=== PATIENT | male | born 1990 | race Caucasian/White ===

== ENCOUNTER 2016-04-03 | Emergency (ER) | payer OTHER | END 2016-04-03 18:37 | disposition home or self-care (01) ==

== ENCOUNTER 2016-09-01 11:51 | Emergency (ER) | payer OTHER ==
--- NOTE | 2016-09-01 12:17 | XRAY Preliminary Report ---
Exam: XR Shoulder 3 View RT IMPRESSION: Negative three-view right shoulder radiography. [facility] SITE ID: [id number]
--- NOTE | 2016-09-01 12:20 | XRAY Report ---
EXAM: RIGHT SHOULDER RADIOGRAPHY EXAM DATE: 09/01/2016 12:12 PM. CLINICAL HISTORY: Grinding, limited rom, pain. COMPARISON: None. TECHNIQUE: 3 views. FINDINGS: Bones: Normal. No fracture or bone lesion. Joints: The glenohumeral and acromioclavicular joints are anatomically aligned. Soft tissues: The included hemithorax is unremarkable. No soft tissue calcification. IMPRESSION: Negative three-view right shoulder radiography. [facility] Referring Provider Line: [phone] SITE ID: [id number]
[2016-09-01] MEDS ORDERED: IBUPROFEN 800 MG TABLET PO STA (12:51)
[2016-09-01] MEDS ORDERED: oxyCOD/ACETAMIN 5 MG/325 MG TABLET PO STA (12:51)
[2016-09-01] MEDS ORDERED: oxyCOD/ACETAMIN 5 MG/325 MG TABLET PO ONE (12:55)
[2016-09-01] MEDS ORDERED: IBUPROFEN 800 MG TABLET PO ONE (12:55)
--- NOTE | 2016-09-01 13:02 | ED Physician Documentation ---
History of Present Illness - Stated complaint Stated Complaint: RT SHOULDER PX - Chief complaint Chief Complaint: Ext Problem - History obtained from History obtained from: Patient - Additonal information Additional information: Patient is a 26-year-old man who is otherwise healthy. He presents with a complaint of right shoulder pain without injury. Pain is been present for a couple days. Pain is worse with movement and better with rest. He sometimes hears a clicking or grinding sensation in the right shoulder joint. There is no history of recent or distant injury. He does have a history of ligamentous laxity has had previous surgery on the right knee. He has been performing fair amount of repetitive activity recently. There is no fever or chills. He denies any neck pain. There is no weakness in the upper extremity. Review of systems: For pertinent positive and negatives in the review of systems please see history of present illness. Otherwise all other systems have been reviewed and are negative. Dragon disclaimer: Parts of this medical record were created using voice recognition technology. Because of the inherent limitations of this system occasional same sounding word substitutions do occur and persist despite proofreading. Please read the document for context. Review of Systems Ten Systems: 10 systems reviewed and negative Constitutional: denies: Fever, Chills, Myalgias Cardiac: denies: Chest pain / pressure, Palpitations, Calf pain Respiratory: denies: Dyspnea, Cough, Hemoptysis, Wheezing GI: denies: Abdominal Pain, Abdominal Swelling, Nausea, Vomiting Musculoskeletal: denies: Neck pain, Back pain, Extremity pain, Extremity swelling PD PAST MEDICAL HISTORY - Past Medical History Cardiovascular: None Respiratory: None Endocrine/Autoimmune: None GI: None : None HEENT: None Psych: None Musculoskeletal: Other Derm: None - Past Surgical History Past Surgical History: No HEENT: Tonsil/Adenoidectomy - Present Medications Home Medications: Ambulatory Orders Medication Instructions Recorded Confirmed Cholecalciferol (Vitamin D3) 1 tab .ON Mon09/01/16 09/01/16 [Vitamin D3] Ibuprofen 600 mg PO TID PRN #14 tablet 09/01/16 Naproxen 0 mg PRN 09/01/16 Tramadol HCl 50 mg PO Q8HR PRN #14 tablet 09/01/16 buPROPion [Wellbutrin Sr] 300 mg DAILY 09/01/16 09/01/16 - Allergies Allergies/Adverse Reactions: Allergies Allergy/AdvReac Type Severity Reaction Status Date / Time No Known Drug Allergies Allergy Verified 01/18/16 10:12 - Social History Does the pt smoke?: No Smoking Status: Never smoker Does the pt drink ETOH?: No Does the pt have substance abuse?: No - Immunizations Immunizations are current?: Yes - POLST Patient has POLST: No PD ED PE NORMAL - General General: Alert and oriented X 3, No acute distress, Well developed/nourished - HEENT HEENT: Atraumatic, PERRL, EOMI - Neck Neck: Supple, no meningeal sign - Cardiac Cardiac: RRR, No murmur, No gallop, No rub - Respiratory Respiratory: No respiratory distress, Clear bilaterally - Abdomen Abdomen: Normal bowel sounds - Derm Derm: Normal color, Warm and dry Results - Vitals Vitals: Vital Signs - 24 hr 09/01/16 11:55 Temperature 36.3 C L Heart Rate 80 Respiratory 18 Rate Blood Pressure 125/83 H O2 Saturation 97 Oxygen O2 Source Room air PD MEDICAL DECISION MAKING - ED course Complexity details: reviewed results, re-evaluated patient, considered differential, d/w patient ED course: Healthy right-hand dominant white male presents with 2 days history of atraumatic right shoulder pain. He feels a click and a pop. On examination I did fill one pop which elicited pain on range of motion testing. Age of motion testing is normal. The joint appears fine without swelling redness or warmth. Radiographically it is completely normal. He does have a history of ligamentous laxity. At this point in time recommending rest, avoidance of repetitive use, oral medications and follow-up. Disposition: To home Clinical impression: 1. Right shoulder pain Departure - Departure Disposition: 01 Home, Self Care Clinical Impression: Sprain of shoulder and upper arm Qualifiers: Encounter type: initial encounter Laterality: right Qualified Code(s): S43.401A - Unspecified sprain of right shoulder joint, initial encounter Condition: Good Instructions: Shoulder Probs, Exercises Shoulder Flexibility, ED Sprain Shoulder Prescriptions: Tramadol HCl 50 mg PO Q8HR PRN #14 tablet PRN Reason: Pain Ibuprofen 600 mg PO TID PRN #14 tablet PRN Reason: Pain
[2016-09-01 13:47] VITALS: BP 123/88
== END 2016-09-01 13:44 | disposition home or self-care (01) ==
LOC: ED 11:51
DX: S43.401A Unspecified sprain of right shoulder joint, initial encounter (principal); X58.XXXA Exposure to other specified factors, initial encounter
CPT/HCPCS: 73030; 99283; A9270

== ENCOUNTER 2016-10-25 11:54 | Emergency (ER) | payer OTHER ==
--- NOTE | 2016-10-25 12:31 | ED Physician Documentation ---
History of Present Illness - Stated complaint Stated Complaint: CHEST PX, SOA - Chief complaint Chief Complaint: General - Additonal information Additional information: Patient is a young male with a history of depression currently being evaluated for medication use. He is walking to the clinic appointment today when he developed chest pain and shortness of breath. The 2 occurred at the same time. Chest pain was a dull ache and he got very short of breath at the same time. He denies feeling anxious at that time he denies any fever or chills. He has not had any cough or ear nose and throat symptoms there is no abdominal pain nausea, vomiting constipation or diarrhea. He used to smoke but does not do so anymore. There is no history of venous thromboembolism and he has no leg pain and swelling of that he does have chronic right knee pain. Review of systems: For pertinent positive and negatives in the review of systems please see the history of present illness, otherwise all other systems have been reviewed and are negative. Dragon disclaimer: Parts of this medical record were created using voice recognition technology. Because of the inherent limitations of this system, occasional same sounding word substitutions do occur and persist despite proofreading. Please read the document for context. Review of Systems Constitutional: denies: Fever, Chills Nose: denies: Rhinorrhea / runny nose PD PAST MEDICAL HISTORY - Past Medical History Past Medical History: Yes Cardiovascular: None Respiratory: None Endocrine/Autoimmune: None GI: None : None HEENT: None Psych: Depression Musculoskeletal: Other Derm: None - Past Surgical History Past Surgical History: Yes HEENT: Tonsil/Adenoidectomy - Present Medications Home Medications: Ambulatory Orders Medication Instructions Recorded Confirmed buPROPion [Wellbutrin Sr] 300 mg DAILY 09/01/16 10/25/16 - Allergies Allergies/Adverse Reactions: Allergies Allergy/AdvReac Type Severity Reaction Status Date / Time No Known Drug Allergies Allergy Verified 10/25/16 11:59 - Social History Does the pt smoke?: No Smoking Status: Never smoker Does the pt drink ETOH?: No Does the pt have substance abuse?: No - Immunizations Immunizations are current?: Yes - POLST Patient has POLST: No PD ED PE NORMAL - Vitals Vital signs reviewed: Yes - General General: Alert and oriented X 3, No acute distress, Well developed/nourished - HEENT HEENT: Atraumatic, PERRL, EOMI, Ears normal, Pharynx benign - Neck Neck: Supple, no meningeal sign, No bony TTP, No JVD, No bruit - Cardiac Cardiac: RRR, No murmur, No gallop, No rub - Respiratory Respiratory: No respiratory distress, Clear bilaterally - Abdomen Abdomen: Normal bowel sounds, Non tender - Derm Derm: Normal color, Warm and dry, No rash - Extremities Extremities: No deformity, No tenderness to palpate, Normal ROM s pain, No edema - Neuro Neuro: Alert and oriented X 3 Results - Vitals Vitals: Vital Signs - 24 hr 10/25/16 10/25/16 11:56 13:38 Temperature 36.4 C L Heart Rate 88 80 Respiratory 18 18 Rate Blood Pressure 129/82 H 120/80 O2 Saturation 98 Oxygen O2 Source Room air PD MEDICAL DECISION MAKING - ED course Complexity details: reviewed old records, reviewed results, re-evaluated patient , d/w patient, d/w family ED course: Patient is a healthy young male without any past medical history other than possibly mild depression and anxiety who presents with chest pain. He has a normal physical examination. EKG shows normal sinus rhythm with a normal NV, QRS, QT interval without ST segment elevation depression or T-wave inversion of her also perfectly normal EKG. Chest x-ray shows no acute intrathoracic disease. He is very low risk for ACS. I see no evidence of venous thromboembolism. There is no evidence referred chest pain having this patient is safe to be discharged home with follow-up. Disposition to home Clinical impression: 1. Precordial pain-low risk cardiac and VTE Departure - Departure Disposition: 01 Home, Self Care Clinical Impression: Chest pain Condition: Good Instructions: ED Chest Pain Atypical Unkn Cause Follow-Up: CHAD PUENTES [Primary Care Provider] - Discharge Date/Time: 10/25/16 13:39
--- NOTE | 2016-10-25 13:13 | XRAY Preliminary Report ---
Exam: XR Chest 2 View PA/LAT IMPRESSION: Normal 2-view chest radiography. [facility] SITE ID: [id number]
--- NOTE | 2016-10-25 13:16 | XRAY Report ---
EXAM: CHEST RADIOGRAPHY EXAM DATE: 10/25/2016 12:48 PM. CLINICAL HISTORY: Chest pain. COMPARISON: None. TECHNIQUE: 2 views. FINDINGS: Lungs/Pleura: No focal opacities evident. No pleural effusion. No pneumothorax. Normal volumes. Mediastinum: Heart and mediastinal contours are unremarkable. Other: None. IMPRESSION: Normal 2-view chest radiography. [facility] Referring Provider Line: [phone] SITE ID: [id number]
[2016-10-25 13:39] VITALS: BP 120/80
== END 2016-10-25 13:39 | disposition home or self-care (01) ==
LOC: ED 11:54
DX: R07.9 Chest pain, unspecified (principal)
CPT/HCPCS: 71020; 93005; 99283

== ENCOUNTER 2016-12-30 11:55 | Emergency (ER) | payer OTHER ==
--- NOTE | 2016-12-30 12:38 | ED Physician Documentation ---
PD HPI GI BLEED - Stated complaint Stated Complaint: RECTAL BLEEDING - Chief complaint Chief Complaint: General - History obtained from History obtained from: Patient - History of Present Illness Timing - onset: How many weeks ago (1) Timing - duration: Weeks (1has had red blood at rectum with wiping after BMs for the past week. Some pain with BMs. Also here with worse depression, anxiety , and suicidal ideation for the past few weeks. Last seen by psychiatrist 2-3 weeks ago with 2 new meds added and patient did not note improvement, actually much worse the past few days. Suicidal ideation without attempt.) Timing - details: Abrupt onset, Intermittant Associated symptoms: BRBPR Contributing factors: No: Sick contact, Bad food, Travel Similar symptoms before: Has not had sx before Recently seen: Clinic (psychiatry 2-3 weeks ago and counselor weekly.) Review of Systems Constitutional: denies: Fever, Chills Nose: denies: Rhinorrhea / runny nose, Congestion Throat: denies: Sore throat Respiratory: denies: Cough GI: reports: Bloody / black stool (red blood with wiping and in toilet bowl after BMs for the past week. Had been somewhat constiapted. Pain rectally with BMs. No prior similar.). denies: Nausea, Vomiting, Diarrhea Skin: denies: Rash, Lesions Musculoskeletal: reports: Extremity pain (right knee and shoulder chronically for the past year or so.) Endocrine: denies: Weight loss PD PAST MEDICAL HISTORY - Past Medical History Cardiovascular: None Respiratory: None Endocrine/Autoimmune: None GI: None : None HEENT: None Psych: Depression Musculoskeletal: Other Derm: None - Past Surgical History Past Surgical History: Yes HEENT: Tonsil/Adenoidectomy - Present Medications Home Medications: Ambulatory Orders Medication Instructions Recorded Confirmed buPROPion [Wellbutrin Sr] 300 mg ORAL DAILY 09/01/16 12/30/16 DULoxetine [Cymbalta] 30 mg PO DAILY 12/30/16 12/30/16 Hydroxyzine Pamoate [Vistaril] 50 mg PO DAILY 12/30/16 12/30/16 Prazosin [Minipress] 1 mg PO DAILY 12/30/16 12/30/16 - Allergies Allergies/Adverse Reactions: Allergies Allergy/AdvReac Type Severity Reaction Status Date / Time No Known Drug Allergies Allergy Verified 12/30/16 12:06 - Living Situation Living Situation: reports: With spouse/s.o. Living Arrangement: reports: At home - Social History Does the pt smoke?: No Smoking Status: Never smoker Does the pt drink ETOH?: No Does the pt have substance abuse?: No - Family History Family history: reports: Non contributory - Immunizations Immunizations are current?: Yes - POLST Patient has POLST: No PD ED PE NORMAL - Vitals Vital signs reviewed: Yes - General General: Alert and oriented X 3, No acute distress, Well developed/nourished, Other (seems somewhat flat affect. Talkative. ) - HEENT HEENT: Moist mucous membranes, Pharynx benign - Neck Neck: Supple, no meningeal sign, No adenopathy - Cardiac Cardiac: RRR, No murmur - Respiratory Respiratory: Clear bilaterally - Abdomen Abdomen: Soft, Non tender - Male Male : Deferred - Rectal Rectal: Other (small hemorrhoid and small fissure, without current bleeding. Stool brown and guiac negative. ) - Back Back: No CVA TTP - Derm Derm: Normal color, Warm and dry - Extremities Extremities: No tenderness to palpate, Normal ROM s pain - Neuro Neuro: Alert and oriented X 3, No motor deficit, Normal speech - Psych Psych: No: Normal mood (depressed and somewhat flat affect. ) Results - Vitals Vitals: Vital Signs - 24 hr 12/30/16 12/30/16 11:58 14:33 Temperature 36.3 C L 36.8 C Heart Rate 109 H 79 Respiratory 14 18 Rate Blood Pressure 119/78 120/74 O2 Saturation 96 98 Oxygen O2 Source Room air - Labs Labs: Laboratory Tests 12/30/16 12/30/16 12/30/16 13:06 13:06 13:06 WBC 7.0 RBC 5.02 Hgb 16.0 Hct 45.8 MCV 91.2 MCH 31.8 H MCHC 34.9 RDW 12.3 Plt Count 256 MPV 8.8 Neut # 4.0 Lymph # 2.1 Evans # 0.7 Eos # 0.1 Baso # 0.1 Absolute Nucleated RBC 0.00 Nucleated RBC % 0.1 Sodium 139 Potassium 3.8 Chloride 102 Carbon Dioxide 27 Anion Gap 10.0 BUN 14 Creatinine 0.9 Estimated GFR (MDRD) 102 Glucose 101 H Calcium 10.0 Total Bilirubin 1.0 AST 34 ALT 52 Alkaline Phosphatase 62 Total Protein 7.5 Albumin 4.5 Globulin 3.0 Albumin/Globulin Ratio 1.5 Lipase 27 TSH 1.26 Salicylates < 6.0 Acetaminophen < 10 L Ethyl Alcohol < 5.0 PD MEDICAL DECISION MAKING - ED course Complexity details: reviewed results, considered differential (regarding rectal bleeding, it appears to be small fissure and hemorrhoid. Can treat with suppositories. He has increased depression and anxiety, with worsened acutely suicidal ideation. Has been on most recent meds for 2-3 weeks without improvement, feels worse the past few days. No particular new triggers/events. ) , d/w patient, d/w mining consultant (SW arranged voluntary admission to [facility]iat[facility].) Departure - Departure Disposition: 65 Psych Hosp/Unit DC/Xfer Clinical Impression: Rectal fissure, Suicidal ideation Depression Qualifiers: Depression Type: major depressive disorder Major depression recurrence: recurrent Active/Remission status: currently active Major depression episode severity: severe Psychotic features: without psychotic features Qualified Code(s ): F33.2 - Major depressive disorder, recurrent severe without psychotic features Condition: Stable Record reviewed to determine appropriate education?: Yes
[2016-12-30] MEDS ORDERED: HYDROCORTISONE 25 MG SUPPOSITORY PR STA (12:58)
[2016-12-30] MEDS ORDERED: HYDROCORTISONE 25 MG SUPPOSITORY PR ONE (13:07)
[2016-12-30 13:12] LABS: BASOPHILS # (AUTO) 0.1 10^3/uL (0.0-0.1); EOSINOPHILS # (AUTO) 0.1 10^3/uL (0.0-0.7); EOSINOPHILS % (AUTO) 1.6 %; HCT - HEMATOCRIT 45.8 % (42.0-52.0); LYMPHOCYTES # (AUTO) 2.1 10^3/uL (1.5-3.5); LYMPHOCYTES % (AUTO) 30.8 %; MEAN CORPUSCULAR HEMOGLOBIN 31.8 pg (27.0-31.0); MEAN CORPUSCULAR HGB CONC 34.9 g/dL (32.0-36.0); MEAN CORPUSCULAR VOLUME 91.2 fL (80.0-94.0); MEAN PLATELET VOLUME 8.8 fL (7.4-11.4); MONOCYTES # (AUTO) 0.7 10^3/uL (0.0-1.0); MONOCYTES % (AUTO) 9.7 %; NEUTROPHILS % (AUTO) 56.9 %; NUCLEATED RED BLOOD CELLS AUTO 0.1 /100WBC; RED BLOOD COUNT 5.02 10^6/uL (4.70-6.10); RED CELL DISTRIBUTION WIDTH 12.3 % (12.0-15.0)
[2016-12-30 13:27] LABS: ALBUMIN/GLOBULIN RATIO 1.5 (1.0-2.2); BUN - BLOOD UREA NITROGEN 14 mg/dL (6-20); CARBON DIOXIDE - CO2 27 mmol/L (21-32); CHLORIDE 102 mmol/L (101-111); CREATININE 0.9 mg/dL (0.6-1.2); GFR - MDRD 102 (>89); GLUCOSE 101 mg/dL (70-100); LIPASE 27 U/L (22-51); POTASSIUM 3.8 mmol/L (3.5-5.0); SALICYLATE < 6.0 mg/dL; SODIUM 139 mmol/L (135-145); TOTAL PROTEIN 7.5 g/dL (6.7-8.2)
[2016-12-30 13:33] LABS: ACETAMINOPHEN < 10 ug/mL (10-30)
[2016-12-30 14:38] LABS: BILIRUBIN,URINE NEGATIVE (NEGATIVE)
[2016-12-30] MEDS ORDERED: LORazepam 0.5 MG TABLET PO STA (14:39)
[2016-12-30] MEDS ORDERED: DOCUSATE SODIUM 100 MG CAPSULE PO STA (14:39)
[2016-12-30 14:43] LABS: UA CHARGE (STRIP ONLY) YES; UR CULTURE IF IND NOT INDICATED
[2016-12-30] MEDS ORDERED: DOCUSATE SODIUM 100 MG CAPSULE PO ONE (14:56)
[2016-12-30] MEDS ORDERED: LORazepam 0.5 MG TABLET ONE (14:57)
[2016-12-30 17:04] VITALS: BP 116/70
== END 2016-12-30 17:04 ==
LOC: ED 11:55
DX: K60.2 Anal fissure, unspecified (principal); R45.851 Suicidal ideations; F33.2 Major depressive disorder, recurrent severe without psychotic features
CPT/HCPCS: 36415; 80053; 80306; 80307; 80320; 80329; 81003; 83690; 84443; 85025; 99284; A9270; J3490; 81001; 87086; 99283